=== PATIENT | female | born 1960 | race Caucasian/White ===

== ENCOUNTER 2021-08-09 05:30 | Emergency (ER) | payer OTHER, SELFPAY ==
--- NOTE | ~2021-08-09 | CT_ITS ---
EXAMINATION: CT ABDOMEN AND PELVIS WITH AND WITHOUT CONTRAST: CT GI BLEEDING STUDY CLINICAL INFORMATION: History of diverticulosis with painless rectal bleeding. COMPARISON: No pertinent prior studies are available for comparison. TECHNIQUE: Multidetector volumetric imaging was performed from the lung bases to the pubic symphysis before and after the administration of: Intravenous contrast: 85 mL Omnipaque 350 No contrast reaction reported MIP coronal, sagittal and coronal reformatted images were obtained on the technologist workstation. This CT examination was performed using dose optimization techniques as appropriate, variously including the following: *Automated exposure control *Adjustment of mA and/or kV according to patient size (this includes techniques or standardized protocols for targeted exams where dose is matched to indication/reason for exam; i.e. extremities or head) *Use of iterative reconstruction technique Total exam dose-length product 816 mGy-cm FINDINGS: STOMACH: No intraluminal contrast accumulation to suggest hemorrhage. Small hiatal hernia. The stomach is underdistended which limits evaluation of wall thickening and mucosal abnormalities. SMALL BOWEL: No intraluminal contrast accumulation to suggest hemorrhage. As above, the majority of the small bowel is underdistended which markedly limits evaluation of mucosal abnormalities and wall thickening. COLON: No intraluminal contrast accumulation to suggest hemorrhage. Also, similar to the stomach and the small bowel, the distal colon is underdistended limiting its assessment. However, accounting for these limitations, there is suggestion of some degree of wall thickening and pericolic fat stranding associated with several diverticula in the sigmoid colon suggesting the presence of mild acute diverticulitis. No bowel obstruction. LUNG BASES: Minimal compressive atelectasis in the medial aspect of the right lung base. No focal consolidation or pleural effusions. LIVER, GALLBLADDER, AND BILIARY TREE: The liver is normal in size, shape, and attenuation. No focal hepatic lesion or biliary ductal dilatation is present. The gallbladder is unremarkable with no evidence of radiopaque gallstones, gallbladder wall thickening, or obvious pericholecystic inflammatory changes. PANCREAS: Normal; no mass or surrounding fluid. SPLEEN: Normal size. No focal lesion. ADRENAL GLANDS: Normal; no mass. KIDNEYS AND URETERS: The kidneys are normal in size, shape, and attenuation. No hydronephrosis, hydroureter, or calculi. ABDOMINAL WALL: No hernia seen. LYMPHOVASCULAR STRUCTURES: No lymphadenopathy. The aorta is normal in caliber. BLADDER: No focal mass or wall thickening seen. No bladder calculi. PELVIC VISCERA: Unremarkable. OSSEOUS STRUCTURES: No acute or suspicious osseous abnormality. Moderate thoracolumbar spondylosis with also degenerative changes in the pubic symphysis. There is an indeterminate but benign-appearing predominantly lucent lesion in the proximal right femur. CT/CT gi bleed abd pel wo/w con IMPRESSION: No evidence of active gastrointestinal bleeding in this examination. However, it is important to note that the majority of the bowel is underdistended which decreases the sensitivity for detection of small amount of blood products within the lumen of the bowel and also limits evaluation of associated wall thickening and mucosal abnormalities. If indicated, consider correlation with a colonoscopy. There are findings most suggestive of mild acute sigmoid diverticulitis in the appropriate clinical context.
[2021-08-09 06:17] VITALS: BP 194/96; PULSE 80; RESP 20; TEMP 36.6; O2SAT 97; BMI 39.7
--- NOTE | 2021-08-09 07:12 | ED.GIBLEED ---
HPI - GI Bleed General Chief complaint: General Medical Stated complaint: Rectal bleeding Time Seen by Provider: 08/09/21 06:59 Source: patient Mode of arrival: ambulatory Limitations: no limitations History of Present Illness HPI Narrative: was driving into work today and noted she felt blood down her legs and saw a large clot - she is not on AC therapy. she has had normal BMs - last one yesterday. no abdominal pain. she had colonoscopy at [facility] 1 year ago told to come back in 10 years was told she had diverticulosis. MD complaint: gross hematochezia Onset (ago): minute(s) Severity: moderate Relieving factors: none Exacerbating factors: none Context: hemorrhoids (but has never bled this bad in the past ) Associated symptoms: nausea Treatments Prior to Arrival: none Related Data Previous Rx's Medication Instructions Recorded levofloxacin 500 mg tablet 500 mg PO DAILY 7 Days #7 tab 08/09/21 metronidazole 500 mg tablet 500 mg PO BID 7 Days #14 tab 08/09/21 Allergies Allergy/AdvReac Type Severity Reaction Status Date / Time gluten AdvReac Gastrointestinal Verified 08/09/21 06:21 Upset Review of Systems Review of Systems: Constitutional : No Weight loss, No Fever, No Chills ENT/Mouth : No sore throat, No Rhinorrhea Eyes: No Swelling, No Redness Cardiovascular : No Chest Pain, No SOB, NoEdema Respiratory : No Cough, No Sputum, No Wheezing Gastrointestinal : Positive Nausea, no Vomiting, no Diarrhea, positive abdominal Pain, pos Hematochezia, No Melena Genitourinary : No Dysuria, No Urinary Frequency, No Hematuria, No Urgency Musculoskeletal : No joint pain, No Myalgias, No Joint Swelling Skin : No Skin Lesions, No rash Neuro : No Weakness, No Numbness, No Dizziness, No Headache Psych : No Anxiety/Panic, No Depression Heme/Lymph: No Bruising, No Lymphadenopathy Endocrine : No Polyuria, No Polydipsia All other systems reviewed and are negative. [facility] Past Medical History Medical History (Updated 08/09/21 @ 10:28 by Francine Wilson DO) Celiac disease Chronic back pain Diverticulosis Hemorrhoids Rectal prolapse Social History Social History (Updated 08/09/21 @ 07:30 by Francine Wilson DO) Patient Tobacco Use Status: Never used Tobacco Use of substances other than those prescribed or required for medical reasons: No Advance Directives: No Advance Directives Information Provided: No Physical Exam Vital Signs: Vital Signs: Last Vital Signs Temp 97.9 F 08/09/21 06:17 Pulse 69 08/09/21 10:46 Resp 16 08/09/21 10:46 BP 138/48 L 08/09/21 10:46 Pulse Ox 97 08/09/21 10:46 BMI result Body Mass Index 39.7 Appearance: Alert. Oriented X3. No acute distress. Eyes: Pupils equal, round and reactive to light. ENT: Pharynx normal. Neck: Normal inspection. Neck supple. CVS: Normal heart rate and rhythm. Pulses normal. Respiratory: No respiratory distress. Breath sounds normal. Abdomen: Soft and nontender. Rectal: dried blood on rectum and inner thighs, non thrombosed non bleeding external hemorrhoids, blood on digital exam but no active bleeding at this time Skin: Skin warm and dry. Normal skin color. Normal skin turgor. Extremities: No lower extremity edema. No calf ttp Neuro: Oriented X 3. No motor deficit. No sensory deficit. Course Course Course Narrative: no bleeding here possible mild diverticulitis will repeat CBC will need antibiotics no GIB here for 7 hours repeat CBC stable at this time reliable and feels safe for DC MDM - GI Bleed MDM Narrative Medical decision making narrative: 61 yo female with hx of chronic back pain, rectal prolapse, hemorrhoids, diverticulosis but no GIB in the past was driving today no recent straining or issues with BMs noted hematochezia and blood down her legs with a large clot - no AC therapy, bleeding has stopped at this time will obtain basic labs, CT scan for GIB suspect diverticular bleed. Dispo per results and findings. Lab Data Result diagrams: 08/09/21 10:36 08/09/21 07:16 Labs: Lab Results 08/09/21 08/09/21 08/09/21 Range/Units 07:16 07:16 07:16 WBC 7.0 (4.8-10.8) X10*3/uL RBC 3.81 L (4.20-5.50) X10*6/uL Hgb 12.9 (12.0-16.0) g/dl Hct 38.6 (37.0-47.0) % MCV 101.3 H (80.0-98.0) fL MCH 33.9 H (27.0-33.0) pg MCHC 33.4 (31.0-35.0) g/dl RDW 12.8 (11.0-16.0) % Plt Count 235 (160-400) X10*3/uL MPV 10.7 (9.4-12.3) fL Immature Gran % (Auto) 0.6 H (0.0-0.4) % Neut % (Auto) 53.8 (45-73) % Lymph % (Auto) 34.8 (20-40) % [place] % (Auto) 7.1 (2-11) % Eos % (Auto) 3.0 (0-4) % Baso % (Auto) 0.7 (0-2) % Lymph # (Auto) 2.4 (1.2-4.9) X10*3/uL [place] # (Auto) 0.5 (0.1-1.2) X10*3/uL Eos # (Auto) 0.2 (0.0-0.4) X10*3/uL Baso # (Auto) 0.1 (0.0-0.2) X10*3/uL Abs Immat Gran (auto) 0.04 H (0.00-0.03) X10*3/uL Absolute Neuts (auto) 3.8 (2.0-8.3) x10*3/uL Absolute Nucleated RBC 0.000 (0.0-0.012) X10*3/uL Nucleated RBC % (auto) 0.0 (0.0-0.2) /100WBC PT 10.3 (9.9-13.0) SEC INR 0.9 (0.9-1.1) APTT 29.9 (24.1-38.0) SEC Sodium 139 (135-145) mmol/L Potassium 4.6 (3.3-5.1) mmol/L Chloride 108 (96-108) mmol/L Carbon Dioxide 25 (22-29) mmol/L Anion Gap 11 L (12-20) BUN 12 (9-16) mg/dL Creatinine 0.74 (0.5-1.4) mg/dL Estim Creat Clear Calc 96.5 Estimated GFR > 60 Random Glucose 112 (60-115) mg/dL Lactic Acid (0.5-2.0) mmol/L Calcium 9.4 (8.4-10.2) mg/dL Magnesium 2.0 (1.6-2.6) mg/dL Total Bilirubin 0.2 (0.0-1.0) mg/dL Direct Bilirubin < 0.2 (0.0-0.5) mg/dL AST 23 (5-31) U/L ALT 34 H (0-31) U/L Alkaline Phosphatase 57 (39-117) U/L Total Protein 6.9 (6.5-8.0) g/dL Albumin 4.1 (3.5-5.0) g/dL Lipase 22 (8-78) U/L Stool Occult Blood (NEGATIVE) COVID-19 (SHILA) (Negative) COVID-19 Clin Com Blood Type Antibody Screen 08/09/21 08/09/21 08/09/21 Range/Units 07:16 07:16 07:25 WBC (4.8-10.8) X10*3/uL RBC (4.20-5.50) X10*6/uL Hgb (12.0-16.0) g/dl Hct (37.0-47.0) % MCV (80.0-98.0) fL MCH (27.0-33.0) pg MCHC (31.0-35.0) g/dl RDW (11.0-16.0) % Plt Count (160-400) X10*3/uL MPV (9.4-12.3) fL Immature Gran % (Auto) (0.0-0.4) % Neut % (Auto) (45-73) % Lymph % (Auto) (20-40) % [place] % (Auto) (2-11) % Eos % (Auto) (0-4) % Baso % (Auto) (0-2) % Lymph # (Auto) (1.2-4.9) X10*3/uL [place] # (Auto) (0.1-1.2) X10*3/uL Eos # (Auto) (0.0-0.4) X10*3/uL Baso # (Auto) (0.0-0.2) X10*3/uL Abs Immat Gran (auto) (0.00-0.03) X10*3/uL Absolute Neuts (auto) (2.0-8.3) x10*3/uL Absolute Nucleated RBC (0.0-0.012) X10*3/uL Nucleated RBC % (auto) (0.0-0.2) /100WBC PT (9.9-13.0) SEC INR (0.9-1.1) APTT (24.1-38.0) SEC Sodium (135-145) mmol/L Potassium (3.3-5.1) mmol/L Chloride (96-108) mmol/L Carbon Dioxide (22-29) mmol/L Anion Gap (12-20) BUN (9-16) mg/dL Creatinine (0.5-1.4) mg/dL Estim Creat Clear Calc Estimated GFR Random Glucose (60-115) mg/dL Lactic Acid 1.2 (0.5-2.0) mmol/L Calcium (8.4-10.2) mg/dL Magnesium (1.6-2.6) mg/dL Total Bilirubin (0.0-1.0) mg/dL Direct Bilirubin (0.0-0.5) mg/dL AST (5-31) U/L ALT (0-31) U/L Alkaline Phosphatase (39-117) U/L Total Protein (6.5-8.0) g/dL Albumin (3.5-5.0) g/dL Lipase (8-78) U/L Stool Occult Blood POSITIVE (NEGATIVE) COVID-19 ([facility]ILA) Negative (Negative) COVID-19 Clin Com See Note Blood Type Antibody Screen 08/09/21 08/09/21 Range/Units 08:44 10:36 WBC 8.0 (4.8-10.8) X10*3/uL RBC 3.61 L (4.20-5.50) X10*6/uL Hgb 12.1 (12.0-16.0) g/dl Hct 36.6 L (37.0-47.0) % MCV 101.4 H (80.0-98.0) fL MCH 33.5 H (27.0-33.0) pg MCHC 33.1 (31.0-35.0) g/dl RDW 12.5 (11.0-16.0) % Plt Count 217 (160-400) X10*3/uL MPV 10.7 (9.4-12.3) fL Immature Gran % (Auto) (0.0-0.4) % Neut % (Auto) (45-73) % Lymph % (Auto) (20-40) % [place] % (Auto) (2-11) % Eos % (Auto) (0-4) % Baso % (Auto) (0-2) % Lymph # (Auto) (1.2-4.9) X10*3/uL [place] # (Auto) (0.1-1.2) X10*3/uL Eos # (Auto) (0.0-0.4) X10*3/uL Baso # (Auto) (0.0-0.2) X10*3/uL Abs Immat Gran (auto) (0.00-0.03) X10*3/uL Absolute Neuts (auto) (2.0-8.3) x10*3/uL Absolute Nucleated RBC 0.000 (0.0-0.012) X10*3/uL Nucleated RBC % (auto) 0.0 (0.0-0.2) /100WBC PT (9.9-13.0) SEC INR (0.9-1.1) APTT (24.1-38.0) SEC Sodium (135-145) mmol/L Potassium (3.3-5.1) mmol/L Chloride (96-108) mmol/L Carbon Dioxide (22-29) mmol/L Anion Gap (12-20) BUN (9-16) mg/dL Creatinine (0.5-1.4) mg/dL Estim Creat Clear Calc Estimated GFR Random Glucose (60-115) mg/dL Lactic Acid (0.5-2.0) mmol/L Calcium (8.4-10.2) mg/dL Magnesium (1.6-2.6) mg/dL Total Bilirubin (0.0-1.0) mg/dL Direct Bilirubin (0.0-0.5) mg/dL AST (5-31) U/L ALT (0-31) U/L Alkaline Phosphatase (39-117) U/L Total Protein (6.5-8.0) g/dL Albumin (3.5-5.0) g/dL Lipase (8-78) U/L Stool Occult Blood (NEGATIVE) COVID-19 ([facility]A) (Negative) COVID-19 Clin Com Blood Type O Positive Antibody Screen NEGATIVE ECG Data Attestation: I personally reviewed and interpreted this ECG as follows: ECG interpretation date: 08/09/21 ECG interpretation time: 08:11 Interpretation: Rate: 69 Rhythm: NSR [place]: normal Normal P waves. Normal CHELSIE. Normal QRS complex. ST T wave : nonspecific, no REE qTC: normal prior studies: no acute ischemia The study has been interpreted contemporaneously by me. . Discharge Plan Discharge Clinical Impression: Diverticulitis, Acute GI bleeding Patient Disposition: Home, Self-Care Instructions: Gastrointestinal Bleeding (ED), Diverticulitis (ED) Additional Instructions: return to ED for any worsening symptoms or concerns no aspirin, motrin, aleve, ibuprofen you cannot drink alcohol with the antibiotics please call your GI doctor as soon as possible NEGATIVE COVID TEST Prescriptions: New levofloxacin 500 mg tablet 500 mg PO DAILY 7 Days Qty: 7 RF: 0 metronidazole 500 mg tablet 500 mg PO BID 7 Days Qty: 14 RF: 0 Stand Alone Forms: Work/School Release
--- NOTE | 2021-08-09 07:20 | PC.NURSE ---
Pt received: PT AOX4 with abd round and tenderness throughout with mild nausea. Pt also c/o lower back pain. GI bleed of jessenia blood noted intermittently. NSR.
[2021-08-09 07:24] LABS: MANUAL DIFF FLAG NO
[2021-08-09 07:27] LABS: Basophils Absolute Auto 0.1 X10*3/uL (0.0-0.2); Basophils Percent Auto 0.7 % (0-2); Eosinophils Absolute Auto 0.2 X10*3/uL (0.0-0.4); Hematocrit 38.6 % (37.0-47.0); Hemoglobin 12.9 g/dl (12.0-16.0); Imm Gran Abs Auto 0.04 X10*3/uL (0.00-0.03); Imm Gran Pct Auto 0.6 % (0.0-0.4); Lymphocytes Absolute Auto 2.4 X10*3/uL (1.2-4.9); Lymphocytes Percent Auto 34.8 % (20-40); Mean Corpuscular HGB Conc 33.4 g/dl (31.0-35.0); Mean Corpuscular Hemoglobin 33.9 pg (27.0-33.0); Mean Corpuscular Volume 101.3 fL (80.0-98.0); Mean Platelet Volume 10.7 fL (9.4-12.3); Monocytes Absolute Auto 0.5 X10*3/uL (0.1-1.2); Monocytes Percent Auto 7.1 % (2-11); Neutrophils Absolute Auto 3.8 x10*3/uL (2.0-8.3); Neutrophils Percent Auto 53.8 % (45-73); Platelet Count 235 X10*3/uL (160-400); Red Blood Count 3.81 X10*6/uL (4.20-5.50); Red Cell Distribution Width 12.8 % (11.0-16.0)
[2021-08-09 07:30] LABS: INTERNATIONAL NORM RATIO 0.9 (0.9-1.1); Prothrombin Time 10.3 SEC (9.9-13.0)
[2021-08-09 07:33] LABS: Partial Thromboplastin Time 29.9 SEC (24.1-38.0)
[2021-08-09 07:35] LABS: Lactic Acid 1.2 mmol/L (0.5-2.0)
[2021-08-09 07:35] LABS: OBS Int Ctl Valid YES; OBS1 POSITIVE (NEGATIVE)
[2021-08-09 07:37] VITALS: BP 131/61; PULSE 66; RESP 16; O2SAT 97
[2021-08-09] MEDS: 0.9 % Sodium Chloride 1,000 ML 999 ML IVCONT (07:37)
[2021-08-09] MEDS: ondansetron HCL 4 MG/2 ML VIAL IVPUSH (07:37)
[2021-08-09 07:41] LABS: Alanine Aminotransferase 34 U/L (0-31); Albumin Level 4.1 g/dL (3.5-5.0); Alkaline Phosphatase 57 U/L (39-117); Anion Gap 11 (12-20); Aspartate Amino Transferase 23 U/L (5-31); Bilirubin Direct < 0.2 mg/dL (0.0-0.5); Bilirubin Total 0.2 mg/dL (0.0-1.0); Blood Urea Nitrogen 12 mg/dL (9-16); Calcium 9.4 mg/dL (8.4-10.2); Carbon Dioxide 25 mmol/L (22-29); Chloride 108 mmol/L (96-108); Creatinine Clr Calc Pharmacy 96.5; Estimated Glomerular Filt Rate > 60; Glucose Random 112 mg/dL (60-115); Lipase 22 U/L (8-78); Potassium 4.6 mmol/L (3.3-5.1); Sodium 139 mmol/L (135-145); Total Protein 6.9 g/dL (6.5-8.0)
[2021-08-09 07:49] LABS: COVID-19 Test Negative (Negative); IDNOW Serial# 9DD0AD1C
--- NOTE | 2021-08-09 07:49 | ECG_ITS ---
Test Reason : GI BLEED Blood Pressure : / mmHG Vent. Rate : 069 BPM Atrial Rate : 069 BPM P-R Int : 196 ms QRS Dur : 086 ms QT Int : 424 ms P-R-T Axes : 048 015 019 degrees QTc Int : 454 ms Normal sinus rhythm Cannot rule out Anterior infarct , age undetermined Abnormal ECG No previous ECGs available Referred By: Francine Wilson Electronically Signed By:Humphrey Lopez
[2021-08-09] MEDS: iohexoL 350 MG/ML 100 ML INFUS..BTL IV (08:37)
[2021-08-09 10:45] LABS: Hematocrit 36.6 % (37.0-47.0); Hemoglobin 12.1 g/dl (12.0-16.0); Mean Corpuscular HGB Conc 33.1 g/dl (31.0-35.0); Mean Corpuscular Hemoglobin 33.5 pg (27.0-33.0); Mean Corpuscular Volume 101.4 fL (80.0-98.0); Mean Platelet Volume 10.7 fL (9.4-12.3); Platelet Count 217 X10*3/uL (160-400); Red Blood Count 3.61 X10*6/uL (4.20-5.50); Red Cell Distribution Width 12.5 % (11.0-16.0)
[2021-08-09 10:46] VITALS: BP 138/48; PULSE 69; RESP 16; O2SAT 97
[2021-08-09] MEDS: levoFLOXacin/D5W 500 MG/100 ML PIGGYBACK 100 MG IV (10:46)
== END 2021-08-09 13:00 | disposition home or self-care (01) ==
PROVIDERS: Emergency Provider Emergency Medicine; PCP Pediatrics
DX: K57.93 Diverticulitis of intestine, part unspecified, without perforation or abscess with bleeding (principal); Z20.822 Contact with and (suspected) exposure to COVID-19
CPT/HCPCS: 36415; 74178; 80048; 80076; 82272; 83605; 83690; 83735; 85025; 85027; 85610; 85730; 86850; 86900; 86901; 87635; 93005; 96361; 96365; 96375; 99283; 99284; J1956; J2405; Q9967

== ENCOUNTER 2021-11-18 16:36 | Emergency (ER) | payer OTHER, SELFPAY ==
--- NOTE | ~2021-11-18 | CT_ITS ---
EXAMINATION: CT ABDOMEN AND PELVIS WITH CONTRAST CLINICAL INFORMATION: Left lower quadrant pain, history of diverticulitis COMPARISON: 08/09/2021 TECHNIQUE: Multidetector volumetric images were obtained from the superior aspect of the liver through the pubic symphysis following administration 85 mL of Omnipaque 350 intravenous contrast. Sagittal and coronal reformatted images were obtained on the technologist's workstation. Oral contrast: No This CT examination was performed using dose optimization techniques as appropriate, variously including the following: *Automated exposure control *Adjustment of mA and/or kV according to patient size (this includes techniques or standardized protocols for targeted exams where dose is matched to indication/reason for exam; i.e. extremities or head) *Use of iterative reconstruction technique DLP: 1015 mGy-cm FINDINGS: LUNG BASES: The visualized lung bases are unremarkable. LIVER, GALLBLADDER, AND BILIARY TREE: The liver is normal in size, shape, and attenuation. No focal hepatic lesion or biliary ductal dilatation is present. The gallbladder is unremarkable with no evidence of radiopaque gallstones, gallbladder wall thickening, or obvious pericholecystic inflammatory changes. PANCREAS: No peripancreatic inflammation. Focal nodularity noted projecting off the superior margin of the proximal pancreatic body on coronal image 44 measuring 1.4 cm in diameter. SPLEEN: Unremarkable. ADRENAL GLANDS: Unremarkable. KIDNEYS AND URETERS: Bilateral nephrograms are symmetric. No hydronephrosis or obstructing calculus identified. Subcentimeter hypodensity in the mid left kidney statistically favors a cyst. BLADDER: Unremarkable. GASTROINTESTINAL TRACT: There is a short segment of wall thickening and surrounding inflammation in the setting of diverticula at the proximal sigmoid colon, consistent with diverticulitis. No pericolonic abscess or free air is seen. The appendix is unremarkable. ABDOMINAL WALL: No significant hernia is appreciated. LYMPH NODES: Normal. VASCULAR: Unremarkable. PELVIC VISCERA: Unremarkable. OSSEOUS STRUCTURES: Redemonstrated lucent lesion in the proximal right femur with thin sclerotic margin, favoring a benign lesion. Degenerative changes are noted in the spine. CT/CT abdomen pelvis w con IMPRESSION: 1. Diverticulitis of the proximal sigmoid colon. No pericolonic abscess or free air identified. Correlation with recent or followup colonoscopy is advised to exclude an underlying mass lesion. 2. Focal nodularity projecting off the superior proximal pancreatic body, of uncertain clinical significance. Further workup with MRI is recommended. Fleischner guidelines were followed.
[2021-11-18 16:55] VITALS: BP 181/100; PULSE 82; RESP 18; TEMP 36.6; O2SAT 98; BMI 41.4
[2021-11-18 17:01] LABS: MANUAL DIFF FLAG NO
[2021-11-18 17:06] LABS: Basophils Percent Auto 0.5 % (0-2); Eosinophils Absolute Auto 0.2 X10*3/uL (0.0-0.4); Eosinophils Percent Auto 2.3 % (0-4); Hematocrit 40.9 % (37.0-47.0); Hemoglobin 13.6 g/dl (12.0-16.0); Imm Gran Abs Auto 0.03 X10*3/uL (0.00-0.03); Imm Gran Pct Auto 0.4 % (0.0-0.4); Lymphocytes Absolute Auto 2.5 X10*3/uL (1.2-4.9); Lymphocytes Percent Auto 28.9 % (20-40); Mean Corpuscular HGB Conc 33.3 g/dl (31.0-35.0); Mean Corpuscular Hemoglobin 32.9 pg (27.0-33.0); Mean Platelet Volume 10.7 fL (9.4-12.3); Monocytes Absolute Auto 0.7 X10*3/uL (0.1-1.2); Monocytes Percent Auto 8.2 % (2-11); Neutrophils Absolute Auto 5.1 x10*3/uL (2.0-8.3); Neutrophils Percent Auto 59.7 % (45-73); Platelet Count 216 X10*3/uL (160-400); Red Blood Count 4.13 X10*6/uL (4.20-5.50); Red Cell Distribution Width 12.9 % (11.0-16.0); White Blood Count 8.6 X10*3/uL (4.8-10.8)
[2021-11-18 17:31] LABS: Alanine Aminotransferase 26 U/L (0-31); Albumin Level 4.3 g/dL (3.5-5.0); Alkaline Phosphatase 67 U/L (39-117); Anion Gap 14 (12-20); Aspartate Amino Transferase 23 U/L (5-31); Bilirubin Total 0.7 mg/dL (0.0-1.0); Blood Urea Nitrogen 6 mg/dL (9-16); Calcium 9.4 mg/dL (8.4-10.2); Carbon Dioxide 24 mmol/L (22-29); Chloride 105 mmol/L (96-108); Creatinine Clr Calc Pharmacy 94.9; Estimated Glomerular Filt Rate > 60; Glucose Random 102 mg/dL (60-115); Potassium 4.1 mmol/L (3.3-5.1); Sodium 139 mmol/L (135-145); Total Protein 7.3 g/dL (6.5-8.0)
[2021-11-19] VITALS: BP 169/78; PULSE 85; RESP 15; O2SAT 98
--- NOTE | 2021-11-19 00:19 | ED_ITS ---
HPI - Abdominal Pain General Chief Complaint: Abdominal Pain Stated Complaint: abd pain Time Seen by Provider: 11/19/21 00:03 Source: patient Mode of arrival: ambulatory Limitations: no limitations History of Present Illness HPI narrative: this is a 61-year-old female past medical history significant for chronic back pain, rectal prolapse, hemorrhoid, diverticulosis presenting to the emergency department with complaints of severe left-sided abdominal pain x2 days progressively worsening. Patient tells me that this feels like the time that she had diverticulitis. She reports that the pain is constant nature, stabbing/ burning localized to the left lower quadrant without radiation. Patient tells me for the past 2 days she has been following a clear liquid diet because she is on able to tolerate whole foods. She reports associated nausea however no vomiting. She also reports associated chills without fevers. She reports no changes in bowel habits or urination. She does tell me that she has some blood per rectum however this is normal for her. She denies chest pain, shortness of breath, headache, dizziness, weakness. She does report that earlier this week she ate popcorn, she suspects this is what triggered this event. MD elicited complaint: abdominal pain Pertinent past history: diverticulitis Onset (ago): day(s) (2) Pain Consistency: constant Location: LLQ Severity: severe Pain scale (0-10): 9 Quality: stabbing and burning Radiation: none Migration to: no migration Exacerbating factors: eating Relieving factors: nothing Associated symptoms: nausea and chills Related Data Previous Rx's Medication Instructions Recorded levofloxacin 500 mg tablet 500 mg PO DAILY 7 Days #7 tab 08/09/21 metronidazole 500 mg tablet 500 mg PO BID 7 Days #14 tab 08/09/21 levofloxacin 500 mg tablet 500 mg PO DAILY 10 Days #10 tab 11/19/21 metronidazole 500 mg tablet 500 mg PO BID 10 Days #20 tab 11/19/21 morphine 15 mg immediate release 15 mg PO Q8H PRN #10 tab 11/19/21 tablet Allergies Allergy/AdvReac Type Severity Reaction Status Date / Time gluten AdvReac Gastrointestinal Verified 08/09/21 06:21 Upset Review of Systems Review of Systems Constitutional : No Weight loss, No Fever, No Chills, No Fatigue, + Malaise ENT/Mouth : No sore throat, No Rhinorrhea Eyes: No Eye Pain, No Swelling, No Redness Cardiovascular : No Chest Pain, No SOB, No Dyspnea on Exertion, No Orthopnea, No Edema, No Palpitations Respiratory : No Cough, No Sputum, No Wheezing Gastrointestinal : + Nausea, No Vomiting, No Diarrhea, No Constipation, + abdominal Pain, No Hematochezia, No Melena Genitourinary : No Dysuria, No Urinary Frequency, No Hematuria, Musculoskeletal : No joint pain, No Myalgias, No Joint Swelling Skin : No Skin Lesions, No rash Neuro : No Weakness, No Numbness, No Dizziness, No Headache Psych : No Anxiety/Panic, No Depression All other systems reviewed and are negative [facility] Past Medical History Attestation statement: The following information was validated with the patient. Source: old records reviewed and nursing notes reviewed Medical History (Updated 11/19/21 @ 01:44 by CEDRICK Lowery) Celiac disease Chronic back pain Diverticulosis Hemorrhoids Rectal prolapse Social History Social History (Updated 08/09/21 @ 07:30 by Francine Wilson DO) Patient Tobacco Use Status: Never used Tobacco Advance Directives: No Advance Directives Information Provided: Yes Physical Exam ED Vital Signs: Vital Signs - 24 hr 11/18/21 16:55 11/19/21 00:00 11/19/21 00:25 Temperature 98 F 98.6 F Pulse Rate 82 85 85 Respiratory Rate 18 15 16 Blood Pressure 181/100 H 169/78 H 169/89 H Pulse Oximetry 98 98 96 11/19/21 00:28 11/19/21 02:16 Temperature Pulse Rate 83 Respiratory Rate 15 16 Blood Pressure 136/75 Pulse Oximetry 92 BMI result Body Mass Index 41.4 Patient is noted to be hypertensive likely secondary to severe pain. Appearance: Alert.? Oriented X3.? No acute distress.? Head: Normocephalic, atraumatic, no step-offs or deformities Eyes: Pupils equal, round and reactive to light.? ENT: Pharynx normal.? Neck: Normal inspection.? Neck supple.? CVS: Normal heart rate and rhythm.? Pulses normal.? Respiratory: No respiratory distress.? Breath sounds normal.? Abdomen: Soft and + LLQ tenderness.? Skin: Skin warm and dry.? Normal skin color.? Normal skin turgor.? Extremities: No lower extremity edema.? No calf ttp. 5/5 strength to bilateral upper and lower extremities Back: No midline tenderness, no C-spine tenderness, full range of motion, no CVA tenderness bilaterally Neuro: Oriented X 3.? No motor deficit.? No sensory deficit. CN 2-12 intact Course Reevaluation(s) Reevaluation #1: Patient's CBC appears to be at baseline, no anemia noted. No acute electrolyte abnormalities. Bilirubin within normal limits. Transaminases normal. I did a rectal exam on this patient no jessenia blood noted on exam, however, there are external and internal hemorrhoids noted upon palpation and inspection. OBS and urine pending. Patient reports improvement in pain after morphine and Zofran. Patient was given a p.o. challenge with Jell-O and clear liquids tolerated them well, no nausea or vomiting. Vital signs stable patient is not febrile no tachycardia, no signs of sepsis. Patient will be given Flagyl and Levaquin here p.o. for diverticulitis. Advised patient to follow-up with GI and return with new or worsening symptoms. Patient will also be discharged home with morphine p.o. as needed for severe pain. Educated patient on recent signs and symptoms and advised her to return if any of these arise. Time: 02:11 Reevaluation #2: Patients obs + likley from hemorrhoids. patient's hemoglobin and hematocrit stable. Advised her to follow-up with her PCP and/or Gastroenterology as soon as possible within the next 2-3 days for follow-up laboratory studies. Time: 02:36 MDM - Abdominal Pain MDM Narrative Medical decision making narrative: 0020 61 yo f presents w/ severe 9/10 LLQ pain and nausea X2 days PE significant for pain to palpation to left lower quadrant. No pain to palpation to right lower quadrant. No CVA tenderness. Lungs clear. regular rate and rhythm. Neuro nonfocal. Plan at this time is labs, imaging, OBS, morphine, Zofran. Will rule out diverticulitis, bowel perforation, diverticulosis. HX and pe not consistent with acute abdomen. Medical Records Attestation: I reviewed the patient's medical records. Lab Data Attestation: I reviewed the patient's lab results. Result diagrams: 11/18/21 16:57 11/18/21 16:57 Labs: Lab Results 11/18/21 11/18/21 11/19/21 Range/Units 16:57 16:57 02:18 WBC 8.6 (4.8-10.8) X10*3/uL RBC 4.13 L (4.20-5.50) X10*6/uL Hgb 13.6 (12.0-16.0) g/dl Hct 40.9 (37.0-47.0) % MCV 99.0 H (80.0-98.0) fL MCH 32.9 (27.0-33.0) pg MCHC 33.3 (31.0-35.0) g/dl RDW 12.9 (11.0-16.0) % Plt Count 216 (160-400) X10*3/uL MPV 10.7 (9.4-12.3) fL Immature Gran % (Auto) 0.4 (0.0-0.4) % Neut % (Auto) 59.7 (45-73) % Lymph % (Auto) 28.9 (20-40) % [place] % (Auto) 8.2 (2-11) % Eos % (Auto) 2.3 (0-4) % Baso % (Auto) 0.5 (0-2) % Lymph # (Auto) 2.5 (1.2-4.9) X10*3/uL [place] # (Auto) 0.7 (0.1-1.2) X10*3/uL Eos # (Auto) 0.2 (0.0-0.4) X10*3/uL Baso # (Auto) 0.0 (0.0-0.2) X10*3/uL Abs Immat Gran (auto) 0.03 (0.00-0.03) X10*3/uL Absolute Neuts (auto) 5.1 (2.0-8.3) x10*3/uL Absolute Nucleated RBC 0.000 (0.0-0.012) X10*3/uL Nucleated RBC % (auto) 0.0 (0.0-0.2) /100WBC Sodium 139 (135-145) mmol/L Potassium 4.1 (3.3-5.1) mmol/L Chloride 105 (96-108) mmol/L Carbon Dioxide 24 (22-29) mmol/L Anion Gap 14 (12-20) BUN 6 L (9-16) mg/dL Creatinine 0.77 (0.5-1.4) mg/dL Estim Creat Clear Calc 94.9 Estimated GFR > 60 Random Glucose 102 (60-115) mg/dL Calcium 9.4 (8.4-10.2) mg/dL Total Bilirubin 0.7 (0.0-1.0) mg/dL AST 23 (5-31) U/L ALT 26 (0-31) U/L Alkaline Phosphatase 67 (39-117) U/L Total Protein 7.3 (6.5-8.0) g/dL Albumin 4.3 (3.5-5.0) g/dL Lipase 12 (8-78) U/L Stool Occult Blood POSITIVE (NEGATIVE) Critical Care Time Critical Care Time Critical Care Time: No Discharge Plan Discharge Clinical Impression: Diverticulitis, Nausea & vomiting Patient Disposition: Home, Self-Care Instructions: Diverticulitis (ED), Acute Nausea and Vomiting (ED), Diverticulitis Diet (ED) Additional Instructions: Take your medications as prescribed. If you were prescribed antibiotics today, it is important that you take your medication to their entirety, do not skip any doses, do not finish them early. Follow-up with your primary care provider this week. Please follow-up with GI as soon as possible you will likely require a colonoscopy and further evaluation. Return to the emergency department with new or worsening symptoms. Such as fevers, chills, chest pain, shortness of breath, nausea, vomiting, dizziness, headache, vision changes, lethargy, bright red blood per rectum, not tolerating anything by mouth In case of emergency call 911 Educated on black box warning of Levaquin. Your occult blood test was positive I am suspecting it is likely secondary to hemorrhoids however if you start experiencing severe rectal bleeding, weakness, dizziness, worsening pain, fevers, chills, nausea, vomiting, abdominal pain. It is important that you return for further evaluation. I also recommend that you follow-up with your PCP as soon as possible for repeat lab test to ensure that your hemoglobin and hematocrit are stable. Please do this once in the next 2-[address]/CT abdomen pelvis w con IMPRESSION: 1.? Diverticulitis of the proximal sigmoid colon. No pericolonic abscess or free air identified. Correlation with recent or followup colonoscopy is advised to exclude an underlying mass lesion. 2.? Focal nodularity projecting off the superior proximal pancreatic body, of uncertain clinical significance. Further workup with MRI is recommended. Prescriptions: New metronidazole 500 mg tablet 500 mg PO BID 10 Days Qty: 20 0RF morphine 15 mg tablet 15 mg PO Q8H PRN (Reason: pain) Qty: 10 0RF Rx Instructions: patient can partially filled prescription upon request levofloxacin 500 mg tablet 500 mg PO DAILY 10 Days Qty: 10 0RF No Action levofloxacin 500 mg tablet 500 mg PO DAILY 7 Days Qty: 7 0RF metronidazole 500 mg tablet 500 mg PO BID 7 Days Qty: 14 0RF Referrals: Ej Giraldo MD [Physician] - 1 day Genesis Sterling MD [Primary Care Provider] - 1 day Adan Rodriguez [Physician] - 1 day Stand Alone Forms: Work/School Release
[2021-11-19 00:24] LABS: Lipase 12 U/L (8-78)
[2021-11-19 00:25] VITALS: BP 169/89; PULSE 85; RESP 16; TEMP 37; O2SAT 96
[2021-11-19 00:28] VITALS: RESP 15
[2021-11-19] MEDS: Morphine Sulfate 4 MG/ML CARTRIDGE IVPUSH (00:28)
[2021-11-19] MEDS: ondansetron HCL 4 MG/2 ML VIAL IVPUSH (00:28)
[2021-11-19] MEDS: iohexoL 350 MG/ML 100 ML INFUS..BTL 85 ML IV (00:54)
[2021-11-19] MEDS: 0.9 % Sodium Chloride 1,000 ML 999 ML IV (01:19)
[2021-11-19 02:16] VITALS: BP 136/75; PULSE 83; RESP 16; O2SAT 92
[2021-11-19 02:23] LABS: OBS Int Ctl Valid YES; OBS1 POSITIVE (NEGATIVE)
[2021-11-19 02:37] LABS: Appearance Urine CLEAR; Color Urine YELLOW; Glucose Urine UA NEG (NEG); Leukocyte Esterase Urine NEG (NEG); Nitrite Urine NEG (NEG); PH 5.5 (5.0-8.0); Urine Blood NEG (NEG); Urine Ketones NEG (NEG); Urine Protein NEG (NEG-TRACE)
[2021-11-19] MEDS: metroNIDAZOLE 500 MG TABLET PO (02:38)
[2021-11-19] MEDS: levoFLOXacin 500 MG TABLET PO (02:38)
== END 2021-11-19 02:49 | disposition home or self-care (01) ==
PROVIDERS: Physician Assistant; Emergency Provider Emergency Medicine; PCP Pediatrics
DX: K57.32 Diverticulitis of large intestine without perforation or abscess without bleeding (principal); R11.2 Nausea with vomiting, unspecified; R10.32 Left lower quadrant pain; I10 Essential (primary) hypertension
CPT/HCPCS: 36415; 74177; 80053; 81003; 82272; 83690; 85025; 96361; 96374; 96375; 99284; J2270; J2405; Q9967